=== PATIENT | male | born 2000 | race Caucasian/White ===

== ENCOUNTER 2018-12-12 18:18 | Emergency (ER) | payer OTHER, SELFPAY ==
[2018-12-12 18:24] VITALS: BP 132/85; PULSE 98; RESP 18; TEMP 36.4; O2SAT 100
--- NOTE | 2018-12-12 18:26 | DI.RAD.S_ITS ---
PROCEDURE: XR WRIST LT MIN 3V INDICATIONS: fell while snowboarding, lt wrist pain/swelling TECHNIQUE: 4 views of the wrist were acquired. COMPARISON: None. FINDINGS: Bones: Acute impaction-type fracture involving distal radial shaft is seen with dorsal displacement and angulation at fracture site. No dislocation is noted. Slight shortening of distal radial shaft is seen. No suspicious bony lesions. Scaphoid view: Scaphoid is grossly intact. Soft tissues: No suspicious soft tissue calcifications. IMPRESSION: Acute slightly displaced impaction-type fracture involving distal radial shaft as above. Dictated by: Ramone Bowman M.D. on 12/12/2018 at 18:56 Approved by: Ramone Bowman M.D. on 12/12/2018 at 18:57
--- NOTE | 2018-12-12 19:44 | ED_ITS ---
HPI - Extremity Injury (Upper) <BRONWYN Griffin - Last Filed: 12/12/18 22:05> General Chief Complaint: Extremity Injury, Upper Stated Complaint: left arm injury from snowboarding Time Seen by Provider: 12/12/18 18:33 Source: patient Mode of arrival: ambulatory Limitations: no limitations History of Present Illness HPI narrative: 18-year-old healthy male here for complaint to pain to his left wrist/forearm area after snowboarding incident earlier today. He states that he fell forward and tried to stop his fall on a outstretched hand. Pain is to the radial aspect of the wrist area. Pain is limited to the left wrist forearm area. He denies any head injuries. No loss of consciousness. He is ambulatory into the emergency room. MD complaint: injury to: left and wrist Related Data Previous Rx's Medication Instructions Recorded hydrocodone-acetaminophen [[place]] 1 tab PO Q4-6H PRN #10 tab 12/12/18 Allergies Allergy/AdvReac Type Severity Reaction Status Date / Time No Known Drug Allergies Allergy Verified 12/12/18 18:25 Review of Systems <BRONWYN Griffin - Last Filed: 12/12/18 22:05> Constitutional Denies chills, Denies fever(s), Denies lethargy and Denies weakness Eyes Denies change in vision, Denies eye discharge, Denies irritation and Denies loss of vision ENT Ears, Nose, Mouth, and Throat: Denies change in voice, Denies neck pain and Denies sore throat Cardiovascular Denies chest pain, Denies irregular heart rhythm, Denies lightheadedness, Denies palpitations, Denies dyspnea, Denies dyspnea on exertion and Denies orthopnea Respiratory Denies cough, Denies dyspnea, Denies dyspnea on exertion and Denies wheezing Gastrointestinal Gastrointestinal: Denies abdominal pain, Denies change in bowel habits, Denies diarrhea, Denies nausea and Denies vomiting Genitourinary Denies hematuria, Denies flank pain, Denies urinary incontinence and Denies urinary urgency Musculoskeletal Denies neck pain Comments: Left wrist pain Integumentary/Breasts Denies pruritus, Denies erythema, Denies rash and Denies wounds Neurologic Denies confusion, Denies loss of vision and Denies weakness Psychiatric Denies anxiety, Denies confusion, Denies depression, Denies homicidal ideation and Denies suicidal ideation Endocrine Denies palpitations Hematologic/Lymphatic Denies easy bruising Allergic/Immunologic Denies wheezing Exam <BRONWYN Griffin - Last Filed: 12/12/18 22:05> Initial Vital Signs Initial Vital Signs: Vital Signs Temperature 97.5 F L 12/12/18 18:24 Pulse Rate 98 H 12/12/18 18:24 Respiratory Rate 18 12/12/18 18:24 Blood Pressure 132/85 12/12/18 18:24 Pulse Oximetry 100 12/12/18 18:24 Const General: cooperative and well developed Nutritional Appearance: well nourished Orientation: alert, awake, oriented x3 and not confused HENAK Mouth: oral mucosae normal and moist mucous membranes Eyes Conjunctivae: conjunctivae normal Sclera: sclerae normal Pupils: PERRL EOM: EOM intact bilaterally Resp Effort & Inspection: normal respiratory effort, able to speak in complete sentences, no respiratory distress and no use of accessory muscles Auscultation: clear to auscultation bilaterally, no rales, no rhonchi and no wheezes Cardio Rate: regular rate Rhythm: regular rhythm Heart Sounds: no click, no gallops, no murmurs and no rubs Pulses: normal peripheral pulses Skin General: no rashes or lesions noted, No jaundice and No petechiae Neuro General: alert, oriented x3, gait normal and no focal motor deficits Speech: speech normal Extrem Other: Left wrist with slight swelling to the radial aspect of the right wrist no open lesions. No other deformities. Distal sensation is intact. Distal range motion intact. Distal pulses are intact. <Jg Sosa DO - Last Filed: 12/12/18 22:06> Initial Vital Signs Initial Vital Signs: Vital Signs Temperature 97.5 F L 12/12/18 18:24 Pulse Rate 98 H 12/12/18 18:24 Respiratory Rate 18 12/12/18 18:24 Blood Pressure 132/85 12/12/18 18:24 Pulse Oximetry 100 12/12/18 18:24 Course <BRONWYN Griffin - Last Filed: 12/12/18 22:05> Orders Ordered: ED Orders 12/12/18 18:26 XR wrist LT min 3V Stat Discontinued Medications Hydrocodone Bitart/Acetaminophen ([place] 5/325) 1 tab PO NOW ONE Stop: 12/12/18 19:53 Last Admin: 12/12/18 20:01 Dose: 1 tab Vital Signs - 8 hr 12/12/18 18:24 12/12/18 20:31 Temperature 97.5 F L Pulse Rate 98 H 89 Respiratory Rate 18 14 Blood Pressure 132/85 Blood Pressure [Right Arm] 139/67 Pulse Oximetry 100 98 <Jg Sosa DO - Last Filed: 12/12/18 22:06> Orders Ordered: ED Orders 12/12/18 18:26 XR wrist LT min 3V Stat Discontinued Medications Hydrocodone Bitart/Acetaminophen ([place] 5/325) 1 tab PO NOW ONE Stop: 12/12/18 19:53 Last Admin: 12/12/18 20:01 Dose: 1 tab Vital Signs - 8 hr 12/12/18 18:24 12/12/18 20:31 Temperature 97.5 F L Pulse Rate 98 H 89 Respiratory Rate 18 14 Blood Pressure 132/85 Blood Pressure [Right Arm] 139/67 Pulse Oximetry 100 98 MDM - Extremity Injury (Upper) <BRONWYN Griffin - Last Filed: 12/12/18 22:05> Imaging Data Left wrist : Radiologist's impression: [address] [place] [id number] XRay Report Signed Patient: Noah Domínguez MR#: [id number] : 2000 Acct:[id number] Age/Sex: 18 / M Date of Service: 12/12/18 Loc: ED Accession Number: [id number] Procedure: XR wrist LT min 3V Ordering Provider: Jg Sosa D.O. PROCEDURE: XR WRIST LT MIN 3V INDICATIONS: fell while snowboarding, lt wrist pain/swelling TECHNIQUE: 4 views of the wrist were acquired. COMPARISON: None. FINDINGS: Bones: Acute impaction-type fracture involving distal radial shaft is seen with dorsal displacement and angulation at fracture site. No dislocation is noted. Slight shortening of distal radial shaft is seen. No suspicious bony lesions. Scaphoid view: Scaphoid is grossly intact. Soft tissues: No suspicious soft tissue calcifications. IMPRESSION: Acute slightly displaced impaction-type fracture involving distal radial shaft as above. Dictated by: Ramone Bowman M.D. on 12/12/2018 at 18:56 Approved by: Ramone Bowman M.D. on 12/12/2018 at 18:57 MDM Narrative Medical decision making narrative: X-ray the left wrist was obtained and shows a fracture to the distal radius. He is placed in a sugar-tong splint and sling for comfort and support. [id number] ibuprofen as needed for any discomfort. Ice and elevation to help with any swelling. Small amount of [place] is prescribed for breakthrough pain. Follow up with primary care provider tomorrow for orthopedic referral. For any worsening symptoms return to the emergency room. Discharge Plan Departure Patient Disposition: Home Clinical Impression: Distal radius fracture, left Discharge Date/Time: 12/12/18 21:02 Interventions: ED Discharge Assessment Last Done: 12/12/18 21:01 Instructions: DI for Wrist Fracture Activity Restrictions/Additional Instructions: X-ray the left wrist was obtained and shows a fracture to the distal radius. He is placed in a sugar-tong splint and sling for comfort and support. Over-the -counter ibuprofen as needed for any discomfort. Ice and elevation to help with any swelling. Small amount of [place] is prescribed for breakthrough pain. Follow up with primary care provider tomorrow for orthopedic referral. For any worsening symptoms return to the emergency room. Prescriptions: New hydrocodone-acetaminophen [[place]] 5-325 mg tablet 1 tab PO Q4-6H PRN (Reason: pain) Qty: 10 RF: 0 Referrals: [facility] [Provider Group] <Jg Sosa DO - Last Filed: 12/12/18 22:06> [facility] ED Attending Nimesh Attestation: I was available for consultation during this patient's emergency department encounter
[2018-12-12] MEDS: HYDROCODONE/ACET 5/325 TABLET 1 TAB PO (20:01)
[2018-12-12 20:31] VITALS: BP 139/67; PULSE 89; RESP 14; O2SAT 98
== END 2018-12-12 21:02 | disposition home or self-care (01) ==
PROVIDERS: Emergency Provider Nurse Practitioner Family
DX: S52.502A Unspecified fracture of the lower end of left radius, initial encounter for closed fracture (principal); V00.311A Fall from snowboard, initial encounter
CPT/HCPCS: 29125; 73110; 99282; 99283